=== PATIENT | female | born 1955 | race Caucasian/White ===

== ENCOUNTER → 2016-09-21 | Outpatient (CLI) | payer BC, OTHER ==
[~2016-09-21] MED LIST: ANTIVERT 25MG25 MG PO; LEVOTHYROXINE PO; LORTAB 5/500 501 TAB PO; MVI; SYNTHROID0.2 MG/TAB PO; TYLENOL W/COD1 UDTAB PO; ZYRTEC ALLERGY10 MG PO
== END ==
LOC: MC.RAD 15:55
DX: Z12.31 Encounter for screening mammogram for malignant neoplasm of breast (principal)

== ENCOUNTER 2016-09-26 08:13 | Outpatient (CLI) | payer BC, OTHER ==
[2016-09-26] VITALS (7 sets, daily range): BP systolic 137–184; BP diastolic 62–84; PULSE 63–80; TEMP 98–98.1
[~2016-09-26] VITALS: Ht 160 cm; Wt 81.8 kg
[~2016-09-26 08:13] MED LIST changes: -ANTIVERT 25MG25 MG PO; -SYNTHROID0.2 MG/TAB PO; -TYLENOL W/COD1 UDTAB PO; -ZYRTEC ALLERGY10 MG PO
[2016-09-26] MEDS ORDERED: ZYRTEC ALLERGY10 MG PO (08:32)
[2016-09-26] MEDS ORDERED: SYNTHROID0.2 MG/TAB PO (08:33)
[2016-09-26 10:39] LABS: CEREBROSPINAL TUBE #4; CSF APPEARANCE CLEAR; CSF COLOR COLORLESS
[2016-09-29 08:44] LABS: CSF,IGG 1.3 mg/dL (<=8.1)
[2016-09-29 08:50] LABS: IGG/ALBUMIN SERUM 0.17 (<=0.40)
[2016-09-29 09:00] LABS: ALBUMIN CSF 15.2 mg/dL (<=27.0); CSF IGG/ALBUMIN 0.09 (<=0.21); CSF-IGG INDEX 0.53 (<=0.85)
== END 2016-09-26 11:20 | disposition home or self-care (01) ==
LOC: COL.RAD 08:13
PROVIDERS: Psychiatry & Neurology Neurology
DX: R20.9 Unspecified disturbances of skin sensation (principal)

== ENCOUNTER → 2016-09-26 | Outpatient (CLI) | payer BC, OTHER | LOC: ZCOL.LAB 11:09 | DX: Z01.89 Encounter for other specified special examinations (principal) ==

== ENCOUNTER → 2016-12-14 | Outpatient (CLI) | payer OTHER ==
[~2016-12-14] MED LIST changes: +ANTIVERT 25MG25 MG PO; +SYNTHROID0.2 MG/TAB PO; +TYLENOL W/COD1 UDTAB PO; +ZYRTEC ALLERGY10 MG PO
== END ==
LOC: COL.RAD 10:34
DX: S09.90XA Unspecified injury of head, initial encounter (principal); S06.0X0A Concussion without loss of consciousness, initial encounter; Y92.512 Supermarket, store or market as the place of occurrence of the external cause; Y99.0 Civilian activity done for income or pay

== ENCOUNTER 2016-12-21 15:39 | Emergency (ER) | payer OTHER, BC ==
[~2016-12-21] VITALS: Ht 160 cm; Wt 77.3 kg
[~2016-12-21 15:39] MED LIST changes: -ANTIVERT 25MG25 MG PO; -TYLENOL W/COD1 UDTAB PO
[2016-12-21 15:45] VITALS: TEMP 98.3
[2016-12-21 16:56] LABS: BASO # 0.1 (0.0-0.2); BASO % 1.4 % (0.0-2.0); EOS # 0.2 (0.0-0.7); EOS % 2.7 % (0-4.0); GRAN # 3.2 (1.4-6.5); GRAN % 55.3 % (42.2-75.2); HEMATOCRIT 40.6 % (37.0-47.0); HEMOGLOBIN 13.5 g/dl (12.5-16.0); LYMPH # 1.7 (1.2-3.4); LYMPH % 28.4 % (20.0-51.0); MEAN CELL VOLUME 90 fl (80.0-100.0); MEAN CORPUSCULAR HEMOGLOBIN 30 pg (27.0-31.0); MEAN CORPUSCULAR HGB CONC 33 g/dl (33.0-37.0); MEAN PLATELET VOLUME 9.9 fl (7.4-10.4); MONO # 0.7 (0.1-0.6); PLATELET COUNT 266 K/mm3 (130-400); REDCELL DISTRIBUTION WIDTH-CV 12.4 % (11.5-14.5); WHITE BLOOD COUNT 5.9 K/mm3 (4.8-10.8)
[2016-12-21 17:08] LABS: ALBUMIN 4.2 gm/dL (3.5-5.0); BILIRUBIN,TOTAL 0.6 mg/dL (0.0-1.0); C-REACTIVE PROTEIN 0.7 mg/dL (0.0-0.9); CALCIUM 9.2 mg/dL (8.4-10.2); CREATININE, serum 0.66 mg/dL (0.52-1.25); TOTAL PROTEIN 6.8 gm/dL (6.4-8.2)
[2016-12-21] MEDS ORDERED: TYLENOL W/COD1 UDTAB PO (17:41)
[2016-12-21] MEDS ORDERED: ANTIVERT 25MG25 MG PO (17:41)
[2016-12-21 18:02] VITALS: BP 150/94; PULSE 87
== END 2016-12-21 18:03 | disposition home or self-care (01) ==
LOC: COL.ER 15:39
PROVIDERS: Emergency Medicine
DX: F07.81 Postconcussional syndrome (principal); G44.309 Post-traumatic headache, unspecified, not intractable; R42 Dizziness and giddiness
CPT/HCPCS: J2765; J3010; J7040

== ENCOUNTER → 2017-07-26 | Outpatient (CLI) | payer OTHER ==
[~2017-07-26] MED LIST changes: +ANTIVERT 25MG25 MG PO; +ASPIRIN E.C. 8181 MG PO; +CALCIUM CARBON650 M2 PO; +D-2000 90 MG-201 TAB PO; +NAPROSYN500 MG PO; +TYLENOL W/COD1 UDTAB PO; +VITAMIN B COMPL1 SGL PO
== END ==
LOC: COL.RAD 09:51
DX: M43.8X6 Other specified deforming dorsopathies, lumbar region (principal); R60.0 Localized edema; M46.95 Unspecified inflammatory spondylopathy, thoracolumbar region; M51.15 Intervertebral disc disorders with radiculopathy, thoracolumbar region; M51.17 Intervertebral disc disorders with radiculopathy, lumbosacral region; M48.07 Spinal stenosis, lumbosacral region

== ENCOUNTER 2017-08-02 07:12 | Outpatient (CLI) | payer OTHER ==
[~2017-08-02] VITALS: Ht 160.1 cm; Wt 76.0 kg
[2017-08-02] VITALS (9 sets, daily range): BP systolic 140–170; BP diastolic 74–93; PULSE 69–83; TEMP 97.6–98
[~2017-08-02 07:12] MED LIST changes: -ASPIRIN E.C. 8181 MG PO; -CALCIUM CARBON650 M2 PO; -D-2000 90 MG-201 TAB PO; -NAPROSYN500 MG PO; -VITAMIN B COMPL1 SGL PO
[2017-08-02] MEDS ORDERED: NAPROSYN500 MG PO (09:02)
[2017-08-02] MEDS ORDERED: ASPIRIN E.C. 8181 MG PO (09:03)
[2017-08-02] MEDS ORDERED: D-2000 90 MG-201 TAB PO (09:04)
[2017-08-02] MEDS ORDERED: CALCIUM CARBON650 M2 PO (09:05)
[2017-08-02] MEDS ORDERED: VITAMIN B COMPL1 SGL PO (09:05)
== END 2017-08-02 14:00 | disposition home or self-care (01) ==
LOC: COL.CAR 07:12
DX: M48.56XA Collapsed vertebra, not elsewhere classified, lumbar region, initial encounter for fracture (principal); M81.0 Age-related osteoporosis without current pathological fracture
CPT/HCPCS: J2250; J3010

== ENCOUNTER → 2017-10-02 | Outpatient (CLI) | payer BC ==
[~2017-10-02] MED LIST changes: +ASPIRIN E.C. 8181 MG PO; +CALCIUM CARBON650 M2 PO; +D-2000 90 MG-201 TAB PO; +NAPROSYN500 MG PO; +VITAMIN B COMPL1 SGL PO
== END ==
LOC: MC.RAD 07:25
DX: Z12.31 Encounter for screening mammogram for malignant neoplasm of breast (principal)

== ENCOUNTER → 2018-01-09 | Outpatient (CLI) | payer MEDICARE, OTHER | LOC: COL.VAS 11:20 | DX: I10 Essential (primary) hypertension (principal); R60.1 Generalized edema ==

== ENCOUNTER → 2018-02-27 | Outpatient (CLI) | payer MEDICARE, OTHER | LOC: COL.VAS 07:35 | DX: I10 Essential (primary) hypertension (principal); R00.0 Tachycardia, unspecified; R60.9 Edema, unspecified ==

== ENCOUNTER → 2018-07-24 | Outpatient (CLI) | payer OTHER | LOC: COL.RAD 12:05 | DX: M99.71 Connective tissue and disc stenosis of intervertebral foramina of cervical region (principal); M99.72 Connective tissue and disc stenosis of intervertebral foramina of thoracic region; M48.02 Spinal stenosis, cervical region; M47.812 Spondylosis without myelopathy or radiculopathy, cervical region; G44.309 Post-traumatic headache, unspecified, not intractable ==

== ENCOUNTER → 2019-09-25 | Outpatient (CLI) | payer MEDICARE, OTHER | LOC: MC.RAD 10:50 | DX: Z12.31 Encounter for screening mammogram for malignant neoplasm of breast (principal) ==

== ENCOUNTER → 2021-01-04 | Outpatient (CLI) | payer MEDICARE, OTHER ==
[~2021-01-04] MED LIST changes: +BRILINTA90 MG PO; +CRESTOR20 MG PO; +ESTROVEN MAX400 MCG PO; +LEXAPRO 10MG10 MG PO; +LIPITOR 40MG TA40 MG PO; +PREDNISONE20 MG PO; +PRILOSEC 20MG20 MG PO; +PROVENTIL0.09 MG/A1 IH; +TRELEGY ELLIPT1 EACH IH
== END ==
LOC: MC.RAD 14:00
DX: Z12.31 Encounter for screening mammogram for malignant neoplasm of breast (principal)

== ENCOUNTER → 2021-01-31 | Outpatient (CLI) | payer MEDICARE, OTHER ==
[~2021-01-31] VITALS: Ht 160.1 cm; Wt 89.8 kg
[2021-01-31 06:25] VITALS: BP 143/70; PULSE 86
[2021-01-31 07:43] VITALS: BP 170/86; PULSE 83
[2021-01-31 07:44] VITALS: BP 181/61; PULSE 98
[2021-01-31 07:45] VITALS: BP 181/61; BP 187/82; PULSE 95; PULSE 98
[2021-01-31 07:47] VITALS: BP 178/82; BP 180/81; PULSE 90
== END ==
LOC: COL.CARD 05:53
DX: R07.89 Other chest pain (principal); R06.00 Dyspnea, unspecified; R06.89 Other abnormalities of breathing; G47.33 Obstructive sleep apnea (adult) (pediatric)
CPT/HCPCS: A9500; J2785

== ENCOUNTER → 2021-02-04 | Outpatient (CLI) | payer MEDICARE, OTHER | LOC: COL.PUL 07:04 | DX: G47.33 Obstructive sleep apnea (adult) (pediatric) (principal); R07.9 Chest pain, unspecified ==

== ENCOUNTER → 2021-02-07 | Outpatient (CLI) | payer MEDICARE, OTHER | LOC: COL.VAS 13:30 | DX: I34.0 Nonrheumatic mitral (valve) insufficiency (principal); G47.33 Obstructive sleep apnea (adult) (pediatric) ==

== ENCOUNTER 2021-03-02 08:56 | Day surgery (SDC) | payer MEDICARE, OTHER ==
[~2021-03-02] VITALS: Ht 160 cm; Wt 93.1 kg
[2021-03-02] VITALS (679 sets, daily range): BP systolic 115–165; BP diastolic 60–90; PULSE 68–103; TEMP 97.5–98.3; O2SAT 79–100
[~2021-03-02 08:56] MED LIST changes: -BRILINTA90 MG PO; -LIPITOR 40MG TA40 MG PO; -PREDNISONE20 MG PO; -TRELEGY ELLIPT1 EACH IH
[2021-03-02 10:18] LABS: HEMATOCRIT 39.6 % (37.0-47.0); HEMOGLOBIN 13.3 g/dl (12.5-16.0); MEAN CELL VOLUME 87 fl (80.0-100.0); MEAN CORPUSCULAR HEMOGLOBIN 29 pg (27.0-31.0); MEAN CORPUSCULAR HGB CONC 34 g/dl (33.0-37.0); MEAN PLATELET VOLUME 9.3 fl (7.4-10.4); PLATELET COUNT 313 K/mm3 (130-400); RED BLOOD COUNT 4.56 M/mm3 (4.10-5.30)
[2021-03-02] MEDS ORDERED: TRELEGY ELLIPT1 EACH IH (10:21)
[2021-03-02] MEDS ORDERED: PREDNISONE20 MG PO (10:23)
[2021-03-02 10:26] LABS: INR 1.1 (0.8-3.0)
[2021-03-02 10:28] LABS: CALCIUM 9.6 mg/dL (8.4-10.2); CREATININE, serum 0.59 (0.52-1.25); PARTIAL THROMBOPLASTIN TIME 29.7 SECONDS (26.0-37.0); POTASSIUM 4.1 mmol/L (3.4-5.0)
--- NOTE | 2021-03-02 10:37 | NUR ---
Initial visit; Patient and her thanked [employer] for offering God's blessings prior to her surgical procedure and for keeping Eudella in her prayers for a thorough and rapid recovery.
--- NOTE | 2021-03-02 20:00 | NUR ---
Assessment complete. Pt is AXO X3, denies having any pain at this time. Pt is resting quietly in the bed on the phone with her at this time and she denies further needs. Call light within reach.
[2021-03-03] VITALS (192 sets, daily range): BP systolic 93–155; BP diastolic 69–79; PULSE 76–82; TEMP 97.8–98.1; O2SAT 93–99
--- NOTE | 2021-03-03 07:32 | NUR ---
Bedside shift report given to KEN Guzmán.
[2021-03-03] MEDS ORDERED: BRILINTA90 MG PO (07:51)
[2021-03-03] MEDS ORDERED: LIPITOR 40MG TA40 MG PO (07:52)
--- NOTE | 2021-03-03 09:29 | NUR ---
PT is alert and oriented this am. No complaints this am. PT discharged at 0929.
== END 2021-03-03 09:29 | disposition home or self-care (01) ==
LOC: COL.CAR 08:56 → ICU 12:10 → COL.CAR 03-03 09:29
PROVIDERS: Internal Medicine Cardiovascular Disease
DX: I25.110 Atherosclerotic heart disease of native coronary artery with unstable angina pectoris (principal); R94.39 Abnormal result of other cardiovascular function study; E78.5 Hyperlipidemia, unspecified; I10 Essential (primary) hypertension; Z91.041 Radiographic dye allergy status; Z79.899 Other long term (current) drug therapy; G47.33 Obstructive sleep apnea (adult) (pediatric); F17.210 Nicotine dependence, cigarettes, uncomplicated
CPT/HCPCS: OP; C1725; C1760; C1769; C1874; C1887; C1894; C9600; J1200; J1644; J1940; J2250; J3010; J7030; Q9967

== ENCOUNTER 2021-11-28 09:21 | Emergency (ER) | payer MEDICARE, OTHER ==
[~2021-11-28] VITALS: Ht 160 cm; Wt 111.4 kg
[~2021-11-28 09:21] MED LIST changes: +BRILINTA90 MG PO; +LIPITOR 40MG TA40 MG PO; +PREDNISONE20 MG PO; +TRELEGY ELLIPT1 EACH IH
[2021-11-28 09:32] VITALS: PULSE 96; TEMP 98.6
[2021-11-28 10:37] LABS: BASO # 0.1 K/mm3 (0.0-0.2); BASO % 1.4 % (0.0-2.0); EOS # 0.5 K/mm3 (0.0-0.7); EOS % 7.1 % (0.0-4.0); GRAN % 59.1 % (42.2-75.2); HEMOGLOBIN 11.4 g/dl (12.5-16.0); LYMPH # 1.3 K/mm3 (1.2-3.4); LYMPH % 19.1 % (20.0-51.0); MEAN CELL VOLUME 93 fl (80.0-100.0); MEAN CORPUSCULAR HEMOGLOBIN 30 pg (27-31); MEAN CORPUSCULAR HGB CONC 33 g/dl (33.0-37.0); MEAN PLATELET VOLUME 10.2 fl (7.4-10.4); MONO # 0.8 K/mm3 (0.1-0.6); MONO % 12.2 % (1.7-9.3); PLATELET COUNT 313 K/mm3 (130-400); RED BLOOD COUNT 3.75 M/mm3 (4.10-5.30); REDCELL DISTRIBUTION WIDTH-CV 12.8 % (11.5-14.5)
[2021-11-28 10:44] LABS: HEMATOCRIT 34.8 % (37.0-47.0)
[2021-11-28 10:45] LABS: ALBUMIN 3.5 gm/dL (3.4-4.8); BILIRUBIN,TOTAL 0.3 mg/dL (0.2-1.2); CALCIUM 8.5 mg/dL (8.4-10.2); CREATININE, serum 0.83 mg/dL (0.57-1.11); POTASSIUM 3.4 mmol/L (3.5-4.5); TOTAL PROTEIN 6.1 gm/dL (6.2-8.1)
[2021-11-28 11:13] LABS: INR 1.1 (0.8-3.0); PROTHROMBIN TIME 11.9 SECONDS (9.7-12.8)
[2021-11-28 12:54] VITALS: BP 152/75
[2021-11-28] MEDS ORDERED: CEPHALEXIN500 M1 PO (12:55)
== END 2021-11-28 13:07 | disposition home or self-care (01) ==
LOC: COL.ER 09:21
PROVIDERS: Physician Assistant
DX: L03.115 Cellulitis of right lower limb (principal); Z87.891 Personal history of nicotine dependence; Z98.61 Coronary angioplasty status; Z79.82 Long term (current) use of aspirin; Z79.02 Long term (current) use of antithrombotics/antiplatelets

== ENCOUNTER → 2021-12-08 | Outpatient (CLI) | payer MEDICARE, OTHER ==
[~2021-12-08] MED LIST changes: +CEPHALEXIN500 M1 PO
[2021-12-08 14:32] LABS: CREATININE, serum 0.88 mg/dL (0.57-1.11); POTASSIUM 3.7 mmol/L (3.5-4.5)
== END ==
LOC: ZCOL.LAB 14:22
PROVIDERS: Family Medicine
DX: R60.0 Localized edema (principal)

== ENCOUNTER → 2021-12-09 | Outpatient (CLI) | payer MEDICARE, OTHER | LOC: COL.RAD 13:19 | DX: N32.89 Other specified disorders of bladder (principal); Z90.710 Acquired absence of both cervix and uterus ==

== ENCOUNTER → 2022-02-06 | Outpatient (CLI) | payer MEDICARE | LOC: MC.RAD 08:49 | DX: Z12.31 Encounter for screening mammogram for malignant neoplasm of breast (principal) ==

== ENCOUNTER 2022-05-11 15:12 | Outpatient (RCR) | payer MEDICARE, OTHER | END 2022-05-17 | disposition home or self-care (01) | LOC: COL.CR | DX: J84.9 Interstitial pulmonary disease, unspecified (principal); I50.9 Heart failure, unspecified | CPT/HCPCS: G0237; G0238; G0239 ==

== ENCOUNTER 2022-05-15 09:51 | Emergency (ER) | payer MEDICARE, OTHER ==
[~2022-05-15] VITALS: Ht 160 cm; Wt 98.6 kg
[2022-05-15 10:42] VITALS: TEMP 98.1
[2022-05-15 14:46] VITALS: BP 111/80; PULSE 67
== END 2022-05-15 15:19 | disposition home or self-care (01) ==
LOC: COL.ER 09:51
DX: S90.111A Contusion of right great toe without damage to nail, initial encounter (principal); S50.311A Abrasion of right elbow, initial encounter; W01.0XXA Fall on same level from slipping, tripping and stumbling without subsequent striking against object, initial encounter; Y92.009 Unspecified place in unspecified non-institutional (private) residence as the place of occurrence of the external cause

== ENCOUNTER → 2022-05-31 | Outpatient (CLI) | payer MEDICARE, OTHER | LOC: COL.LAB 03:15 | DX: R07.9 Chest pain, unspecified (principal) ==

== ENCOUNTER → 2022-06-01 | Outpatient (CLI) | payer MEDICARE, OTHER | LOC: COL.RAD 08:53 | DX: Z12.2 Encounter for screening for malignant neoplasm of respiratory organs (principal); Z87.891 Personal history of nicotine dependence ==

== ENCOUNTER 2022-06-08 14:11 | Outpatient (RCR) | payer MEDICARE, OTHER | END 2022-06-13 12:04 | disposition home or self-care (01) | LOC: COL.CR 14:11 | DX: J84.9 Interstitial pulmonary disease, unspecified (principal); I50.9 Heart failure, unspecified | CPT/HCPCS: G0237; G0239 ==

== ENCOUNTER → 2022-06-09 | Outpatient (CLI) | payer MEDICARE, OTHER | LOC: COL.RAD 13:27 | DX: R19.00 Intra-abdominal and pelvic swelling, mass and lump, unspecified site (principal) ==

== ENCOUNTER → 2022-07-20 | Outpatient (CLI) | payer MEDICARE, OTHER | LOC: COL.RAD 07:11 | DX: G44.309 Post-traumatic headache, unspecified, not intractable (principal); R42 Dizziness and giddiness; R41.0 Disorientation, unspecified | CPT/HCPCS: A9575 ==

== ENCOUNTER → 2023-07-20 | Outpatient (CLI) | payer MEDICARE, OTHER ==
[~2023-07-20] MED LIST changes: +PROTONIX 40MG T40 MG PO
== END ==
LOC: CANSCHCLI → COL.RAD 06-04 13:30
DX: Z12.2 Encounter for screening for malignant neoplasm of respiratory organs (principal); N83.8 Other noninflammatory disorders of ovary, fallopian tube and broad ligament; I25.10 Atherosclerotic heart disease of native coronary artery without angina pectoris; Z87.891 Personal history of nicotine dependence

== ENCOUNTER → 2024-03-18 | Outpatient (CLI) | payer MEDICARE | LOC: MC.RAD 08:17 | DX: Z12.31 Encounter for screening mammogram for malignant neoplasm of breast (principal) ==